=== PATIENT | male | born 1960 | race Caucasian/White ===

== ENCOUNTER 2016-09-16 12:08 | Emergency (ER) ==
--- NOTE | 2016-09-16 12:28 | PROVIDER DOCUMENTATION ---
HPI-Male Problem - General Chief Complaint: Urinary Retention Stated Complaint: PAINFUL URINATION /DRIPPING Time Seen by Provider: 09/16/16 12:17 Source: patient Allergies/Adverse Reactions: Patient Allergies Allergy/AdvReac Type Severity Reaction Status Date / Time No Known Allergies Allergy Verified 09/16/16 12:38 Home Medications: Home Medication List Medication Instructions Recorded Confirmed Last Taken Type No Home Medications 09/16/16 09/16/16 Unknown History - History of Present Illness-Male Nature of Presenting Problem: patient is a 56 y/o M that presents to the ER with 3 days of urinary retention and dribbling. Unable to get stream to go. denies fever/chills, v/d. reports suprapubic pain and pressure with nausea. Location of Complaint: reports: suprapubic Radiation: reports: none Quality of Pain: reports: cramping, fullness Severity in ED: reports: moderate Onset/Duration: reports: gradual, 3 days ago Timing: reports: still present, constant, getting worse Context/Activities at Onset: reports: none Urinary Symptoms: reports: dribbling, retention. denies: dysuria, frequency, hesitancy Associated Symptoms: reports: none Associated Symptoms: reports: nausea. denies: constipation, cough, fatigue, fever/chills, vomiting, weakness Similar Symptoms Previously?: No Recently seen or treated by another doctor?: No Review of Systems - Adult - REVIEW OF SYSTEMS - ADULT Constitutional: denies: chills, fever Eyes: reports: no symptoms reported Ears, Nose, Mouth & Throat: reports: no symptoms reported Cardiovascular: denies: chest pain, palpitations, syncope Respiratory: denies: cough, shortness of breath, wheezing Gastrointestinal: reports: abdominal pain, nausea. denies: diarrhea, vomiting Genitourinary: reports: urinary retention. denies: dysuria, discharge, frequency Musculoskeletal: denies: back pain, joint pain, neck pain Integumentary: reports: no symptoms reported Neurological: reports: no symptoms reported Psychiatric: reports: no symptoms reported Endocrine: reports: no symptoms reported Hematologic/Lymphatic: reports: no symptoms reported Allergic/Immunologic: reports: no symptoms reported All Other Systems: Reviewed and Negative Past History - Adult - PAST MEDICAL HISTORY-ADULT Review of Records: reports: Old Records Reviewed, Nursing Assessment Review, Medications Reviewed Gastrointestinal: reports: hepatitis (C) Musculoskeletal: reports: arthritis - PRIOR SURGERIES/PROCEDURES Surgical/Procedure History: reports: orthopedic (extremity) - IMMUNIZATION STATUS Childhood Immunizations: See Nurse Assessment Flu Vaccine: See Nurse Assessment - FAMILY HISTORY Family History: reviewed, not pertinent - SOCIAL HISTORY Smoking: cigarettes, less than 1 pack/day Alcohol Use Frequency: occasionally Living Situation: family Physical Exam-General - PHYSICAL EXAM-ADULT Initial Vital Signs Reviewed: Yes - CONSTITUTIONAL General Appearance: alert, no apparent distress - EYES Eyes: PERRL/EOMI, pink conjunctivae - HEAD, EARS, NOSE, MOUTH & THROAT HENMT: normocephalic/atraumatic, moist mucous membranes, normal ENT inspection - NECK Neck: full range of motion, normal inspection. negative: lymphadenopathy - RESPIRATORY Respiratory: lungs clear, normal breath sounds, no respiratory distress, no accessory muscle use - CARDIOVASCULAR Cardiovascular: regular rate, rhythm, no gallop, no murmur - GASTROINTESTINAL (ABDOMEN) Abdominal Exam: normal bowel sounds, soft, no pulsatile mass, hepatomegaly - MUSCULOSKELETAL Back Exam: no CVA tenderness, no vertebral tenderness Extremity: normal range of motion, normal inspection, no pedal edema, normal capillary refill - SKIN Integumentary: normal color, warm/dry - NEUROLOGIC Neurologic: grossly normal, no motor/sensory deficits - PSYCHIATRIC Psych/Mental Status: normal mood/affect, normal thought content, normal thought process, oriented x 3 Progress - PLAN OF CARE/RESULTS Progress/Plan/Lab Results: plan of care- labs, bladder scan, woods insertion Vital Signs Temp Pulse Resp BP Pulse Ox 09/16/16 12:12 98.0 F 75 16 116/72 99 No Known Allergies Allergy (Verified 09/16/16 12:38) No Home Medications 09/16/16 Dietary Diet NPO Start Rosa Sep 16 124 I&O 09/15/16 09/16/16 09/17/16 06:59 06:59 06:59 Output Total 300 Balance -300 Laboratory 09/16/16 09/16/16 09/16/16 12:50 12:32 12:32 WBC 8.41 RBC 4.56 L Hgb 13.7 L Hct 40.4 L MCV 88.6 MCH 30.0 MCHC 33.9 RDW Std Deviation 14.2 Plt Count 202 MPV 10.8 H Immature Gran % (Auto) 0.2 Neut % (Auto) 47.4 Lymph % (Auto) 39.4 [place] % (Auto) 10.6 H Eos % (Auto) 1.9 Baso % (Auto) 0.5 Immature Gran # (Auto) 0.02 Neut # (Auto) 3.99 Lymph # (Auto) 3.31 [place] # (Auto) 0.89 H Eos # (Auto) 0.16 Baso # (Auto) 0.04 Sodium 131 L Potassium 4.1 Chloride 94 L Carbon Dioxide 23 L Anion Gap 14 BUN 11 Creatinine 0.8 Estimated GFR/1.73 m2 > 60 BUN/Creatinine Ratio 14 Glucose 93 Calculated Osmolality 262 Calcium 9.5 Total Bilirubin 0.82 AST 84 H ALT 74 H Alkaline Phosphatase 66 Total Protein 8.2 Albumin 4.0 Globulin 4.2 Albumin/Globulin Ratio 1.0 Amylase 64 Lipase 22 Urine Source CLEAN CATCH Urine Color YELLOW Urine Turbidity CLEAR Urine pH 6.0 Ur Specific [place] 1.012 Urine Protein NEGATIVE Ur Glucose (Stick) NEGATIVE Ur Ketones (Stick) NEGATIVE Urine Blood NEGATIVE Urine Nitrite NEGATIVE Urine Bilirubin NEGATIVE Urobilinogen Dipstick NORMAL Urine Leukocytes NEGATIVE Urine WBC (Auto) <10 Urine RBC (Auto) <10 U Epithel Cells (Auto) <10 Urine Bacteria (Auto) NEGATIVE Orders Category Date Time Status Bladder Scan and Record Result ORDERED Care 09/16/16 12:17 Active Woods Cath Insertion ORDERED Care 09/16/16 12:17 Active Saline Loc DIRECTED Care 09/16/16 12:46 Active NPO Diet 09/16/16 12:46 Active RENAL STONE SEARCH [CT] Stat Exams 09/16/16 14:10 Draft AMYLASE [CHEM] Stat Lab 09/16/16 12:32 Completed CBC WITH ELECTRONIC DIFF [HEME] Stat Lab 09/16/16 12:32 Completed COMPREHENSIVE METABOLIC PANEL [CHEM] Stat Lab 09/16/16 12:32 Completed LIPASE [CHEM] Stat Lab 09/16/16 12:32 Completed UA NIMS W/REFLEX CULT [URINALYSIS] Stat Lab 09/16/16 12:50 Completed 0.9% Sodium Chloride Inj [Ns] 1,000 ml Med 09/16/16 12:46 Discontinued IV 999 mls/hr pt will be d/c home f/u with urology, pt was clinically stable, pt understood instructions and results - CT/MRI 1 CT Study: Renal Stone Impression: Abnormal CT Results: no stones or obstruction, possible cystitis, ?ileus Departure - Departure Time of Disposition Order: 15:33 DIAGNOSIS: Urinary retention Disposition: HOME 01 Certified Medical Emergency: Emergent Condition: Stable Additional Instructions: ED Follow Up Instructions: You have been treated by a care provider in the Emergency Department. These instructions are being provided to you so you can have an understanding of how to care for yourself upon discharge. Upon discharge from the Emergency Department, you are responsible for making arrangements for follow-up care by a physician of your choice. Take all prescribed medications as directed. Return to the Emergency Department immediately for any new or worsening symptoms. You may call the Physician Referral phone number at [phone] to obtain a list of Physicians who are taking new patients. Referrals: None,PCP [Primary Care Provider] - Darin Lal MD [STAFF PHYSICIAN] - Call for Appoint. 1-2days Instructions: Woods Catheter Care, Adult, [id number], Urinary Retention, Acute, Male, [id number] Attestation - Scribe Verification/Attestation Scribe:: Robert Reis Acting as Scribe for:: Kevin Mensah Scribe documention review:: This chart was documented by a scribe and accurately reflects the service the provider performed and the decisions made by the provider. Physician Attestation - Physician Attestation I, the provider, attest to the following statement:: Kevin Mensah Physician documentation Attestation:: This documentation recorded by the scribe accurately reflects the service I personally performed and the decisions made by me.
[2016-09-16] MEDS ORDERED: NS 1,000 ML IV ONE (12:46)
[2016-09-16 13:03] LABS: URINE CULTURE NEEDED? NO; URINE MICRO REVIEW NEEDED? NO; URINE SOURCE CLEAN CATCH
[2016-09-16 13:04] LABS: MANUAL DIFF NEEDED? NO
[2016-09-16 13:10] LABS: BASO% 0.5 % (0.0-0.8); EOS# 0.16 X1000 (0.0-0.7); EOS% 1.9 % (0.0-10.0); HEMATOCRIT 40.4 % (42.0-52.0); HEMOGLOBIN 13.7 g/dL (14.0-18.0); IMM GRAN# 0.02 X1000 (0.0-0.04); IMM GRAN% 0.2 % (0.0-0.5); LYMPH# 3.31 X1000 (1.2-3.4); LYMPH% 39.4 % (20.5-51.1); MCHC 33.9 g/dL (33-37); MCV 88.6 FL (81-99); MONO# 0.89 X1000 (0.11-0.59); MONO% 10.6 % (1.7-9.3); MPV 10.8 FL (7.4-10.4); NEUT% 47.4 % (42.2-75.2); PLT 202 X1000 (130-400); RBC 4.56 XMIL (4.7-6.1)
[2016-09-16 13:11] LABS: BILIRUBIN URINE NEGATIVE (NEGATIVE); BLOOD URINE NEGATIVE (NEGATIVE); COLOR YELLOW; GLUCOSE URINE NEGATIVE (NEGATIVE); LEUKOCYTES URINE NEGATIVE (NEGATIVE); NITRITE URINE NEGATIVE (NEGATIVE); PROTEIN URINE NEGATIVE (NEGATIVE); SP GRAVITY URINE 1.012; TURBIDITY URINE CLEAR (CLEAR); UROBILINOGEN URINE NORMAL (NORMAL)
[2016-09-16 13:12] LABS: UR EPITHELIAL CELLS <10 /HPF (<10); URINE BACTERIA NEGATIVE /HPF; URINE RBC <10 /HPF (<10); URINE WBC <10 /HPF (<10)
[2016-09-16 13:23] LABS: AGAP 14; ALKALINE PHOSPHATASE 66 U/L (32-122); AMYLASE 64 U/L (20-200); BUN 11 mg/dL (8-22); CALCIUM 9.5 mg/dL (8.8-10.2); CHLORIDE 94 mmol/L (98-107); COSMO 262; GOT 84 U/L (10-34); GPT 74 U/L (10-44); LIPASE 22 U/L (13-60); POTASSIUM 4.1 mmol/L (3.5-5.1); SODIUM 131 mmol/L (136-145); TCO2 23 mmol/L (25-35); TOTAL BILIRUBIN 0.82 mg/dL (0.20-1.00); TOTAL PROTEIN 8.2 g/dL (6.3-8.3)
--- NOTE | 2016-09-16 15:03 | Diag Imaging Result Document ---
PROCEDURE NAME: RENAL STONE SEARCH - 09/16/2016 CT UROGRAM WITHOUT CONTRAST: FINDINGS: There are apparent fibrotic changes in the lung bases. There are no previous studies. There is no evidence of nephrolithiasis or hydronephrosis. There is a Cottrell catheter in the bladder and some gas is present in the bladder. There is no evidence of ureteral stones. The urinary bladder is not distended and the cano are somewhat thickened. There is no evidence of appendicitis. There is some gas and fluid in the small bowel and some stool is present in the colon with possible fecalized contents in the distal ileum. The regional skeleton appears to be intact. IMPRESSION: The possibility of stasis of bowel contents in the distal ileum cannot be excluded. No definite evidence of complete obstruction is present, however. The possibility of cystitis cannot be excluded. No evidence of stones or obstruction.
[2016-09-16 15:54] VITALS: BP 128/65
== END 2016-09-16 16:02 | disposition home or self-care (01) ==
LOC: ED 12:08
DX: R33.9 Retention of urine, unspecified (principal); R10.9 Unspecified abdominal pain; R11.0 Nausea; R30.9 Painful micturition, unspecified; B19.20 Unspecified viral hepatitis C without hepatic coma; M19.90 Unspecified osteoarthritis, unspecified site; F17.210 Nicotine dependence, cigarettes, uncomplicated
CPT/HCPCS: 51702; 74176; 80053; 81001; 82150; 83690; 85025; J7030

== ENCOUNTER 2016-09-21 16:27 | Emergency (ER) ==
[2016-09-21 16:52] VITALS: BP 105/58
== END 2016-09-21 18:25 | disposition left against medical advice (07) ==
LOC: ED 16:27
DX: Z46.6 Encounter for fitting and adjustment of urinary device (principal)

== ENCOUNTER 2016-09-24 07:42 | Emergency (ER) ==
[2016-09-24 08:03] VITALS: BP 150/66
--- NOTE | 2016-09-24 09:46 | PROVIDER DOCUMENTATION ---
HPI-Male Problem - General Chief Complaint: General Adult Stated Complaint: NEED CATHETER REMOVE Time Seen by Provider: 09/24/16 09:37 Source: patient Allergies/Adverse Reactions: Patient Allergies Allergy/AdvReac Type Severity Reaction Status Date / Time No Known Allergies Allergy Verified 09/24/16 09:41 Home Medications: Home Medication List Medication Instructions Recorded Confirmed Last Taken Type Ciprofloxacin HCl [Cipro] 500 mg PO BID #10 tablet 09/24/16 Unknown Rx Tamsulosin [Flomax] 0.4 mg PO DAILY #20 capsule 09/24/16 Unknown Rx - History of Present Illness-Male Nature of Presenting Problem: 56 y/o WM c/o "needing catheter removed." Patient was here on 09/14/16 for difficulty urinating, had a woods placed in the ER, no urology consult, told to f/u with a urologist as outpatient. He states he cannot afford to go there due to not having insurance. Denies fevers or chills. Came on 09/21/16 to have it removed but LWBS. Has a cramping pain in the left lower back, no radiation. Denies nausea or vomiting. Denies discharge or pain around the urethral meatus. Denies testicular pain. Review of Systems - Adult - REVIEW OF SYSTEMS - ADULT Constitutional: reports: no symptoms reported. denies: chills, fever, fatique Eyes: reports: no symptoms reported. denies: decreased vision, blurred vision, double vision, eye pain Ears, Nose, Mouth & Throat: reports: no symptoms reported. denies: ear pain, nose pain, throat pain Cardiovascular: reports: no symptoms reported. denies: chest pain, palpitations Respiratory: reports: no symptoms reported. denies: cough, shortness of breath , wheezing Gastrointestinal: reports: no symptoms reported. denies: abdominal pain, diarrhea, nausea, vomiting Genitourinary: reports: see HPI, flank pain Musculoskeletal: reports: no symptoms reported. denies: bone pain, back pain, muscle aches Integumentary: reports: no symptoms reported. denies: rash Neurological: reports: no symptoms reported. denies: dizziness/vertigo, headache/migraines Psychiatric: reports: no symptoms reported Endocrine: reports: no symptoms reported Hematologic/Lymphatic: reports: no symptoms reported Allergic/Immunologic: reports: no symptoms reported All Other Systems: Reviewed and Negative Past History - Adult - PAST MEDICAL HISTORY-ADULT Review of Records: reports: Old Records Reviewed, Nursing Assessment Review, Medications Reviewed Major Childhood Illnesses: reports: denies history Cardiovascular: reports: denies history Respiratory: reports: denies history Gastrointestinal: reports: hepatitis (C) Genitourinary: reports: denies history Musculoskeletal: reports: arthritis Neurological: reports: denies history Endocrine/Immune: reports: denies history Other Conditions: reports: denies history - PRIOR SURGERIES/PROCEDURES Surgical/Procedure History: reports: orthopedic (extremity) - IMMUNIZATION STATUS Childhood Immunizations: See Nurse Assessment Flu Vaccine: See Nurse Assessment - FAMILY HISTORY Family History: reviewed, not pertinent - SOCIAL HISTORY Smoking: greater than 1 pack/day Provider spent 3-5 mins advising pt. on dangers of tobacco.: Discussed manners to quit use, and f/u contacts for add'l counseling. Substance Use: denies Alcohol Use Frequency: never Living Situation: family Physical Exam-General - PHYSICAL EXAM-ADULT Initial Vital Signs Reviewed: Yes - CONSTITUTIONAL General Appearance: appears well, alert, no apparent distress - EYES Eyes: PERRL/EOMI, pink conjunctivae - HEAD, EARS, NOSE, MOUTH & THROAT HENMT: normocephalic/atraumatic, moist mucous membranes - NECK Neck: non-tender, full range of motion, supple, normal inspection - RESPIRATORY Respiratory: chest non-tender, lungs clear, normal breath sounds, no pleuratic chest pain, no respiratory distress, no accessory muscle use. negative: respiratory distress, decreased breath sounds, accessory muscle use, crackles, rales, rhonchi, wheezing - CARDIOVASCULAR Cardiovascular: normal peripheral pulses, systolic murmur (3/6) - GASTROINTESTINAL (ABDOMEN) Abdominal Exam: normal bowel sounds, non tender, soft, no organomegaly, no pulsatile mass. negative: abdominal bruit, abnormal bowel sounds, distended, guarding, rigid, rebound, tenderness - MUSCULOSKELETAL Back Exam: normal inspection, no vertebral tenderness Extremity: normal range of motion, non-tender, normal gait - SKIN Integumentary: normal color, normal turgor, warm/dry - NEUROLOGIC Neurologic: grossly normal, no motor/sensory deficits - PSYCHIATRIC Psych/Mental Status: normal mood/affect, normal thought content, normal thought process, oriented x 3 Progress - PLAN OF CARE/RESULTS Progress/Plan/Lab Results: Vital Signs Temp Pulse Resp BP Pulse Ox 09/24/16 08:00 97.8 F 57 L 18 150/66 100 No Known Allergies Allergy (Verified 09/24/16 09:41) No Home Medications 09/24/16 Laboratory 09/24/16 09:35 Urine Source CATH Urine Color STRAW Urine Turbidity HAZY Urine pH 6.0 Ur Specific [place] 1.002 Urine Protein NEGATIVE Ur Glucose (Stick) NEGATIVE Ur Ketones (Stick) NEGATIVE Urine Blood MODERATE A Urine Nitrite NEGATIVE Urine Bilirubin NEGATIVE Urobilinogen Dipstick NORMAL Urine Leukocytes LARGE A Orders Category Date Time Status UA NIMS W/REFLEX CULT [URINALYSIS] Stat Lab 09/24/16 09:35 Results URINE MANUAL MICROSCOPIC [URINALYSIS] Stat Lab 09/24/16 09:35 Results Went to discharge patient and he is no longer in the room. Waited 30 minutes, never returned to the ER. 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 Departure - Departure Time of Disposition Order: 10:06 DIAGNOSIS: Acute UTI, Encounter for Woods catheter removal BPH (benign prostatic hyperplasia) Qualifiers: Prostatic enlargement morphology: unspecified morphology Lower urinary tract symptom presence: symptoms present Qualified Code(s): N40.1 - Benign prostatic hyperplasia with lower urinary tract symptoms Disposition: [place] [id number] Certified Medical Emergency: Emergent Condition: Stable Additional Instructions: Follow up with Dr. Shipley, urologist ED Follow Up Instructions: You have been treated by a care provider in the Emergency Department. These instructions are being provided to you so you can have an understanding of how to care for yourself upon discharge. Upon discharge from the Emergency Department, you are responsible for making arrangements for follow-up care by a physician of your choice. Take all prescribed medications as directed. Return to the Emergency Department immediately for any new or worsening symptoms. You may call the Physician Referral phone number at [phone] to obtain a list of Physicians who are taking new patients. Prescriptions: Ciprofloxacin HCl [Cipro] 500 mg PO BID #10 tablet Tamsulosin [Flomax] 0.4 mg PO DAILY #20 capsule Referrals: None,PCP [Primary Care Provider] - Frankie Shipley MD [STAFF PHYSICIAN] - Instructions: Benign Prostatic Hyperplasia, Urinary Tract Infection, Easy-to- Read Attestation - Physician/ URBANO Attestation Patient care was provided by Advanced Practice Provider:: Yes Advanced Practice Provider:: Prerna Castillo Advanced Practice Provider documentation review:: The Mid-level provider documentation, treatment plan and medical decision making was reviewed by the physician who agrees with all treatment and medical decision making by the MLP.
[2016-09-24 09:48] LABS: URINE SOURCE CATH
[2016-09-24 09:59] LABS: BILIRUBIN URINE NEGATIVE (NEGATIVE); BLOOD URINE MODERATE (NEGATIVE); COLOR STRAW; GLUCOSE URINE NEGATIVE (NEGATIVE); LEUKOCYTES URINE LARGE (NEGATIVE); NITRITE URINE NEGATIVE (NEGATIVE); PROTEIN URINE NEGATIVE (NEGATIVE); SP GRAVITY URINE 1.002; TURBIDITY URINE HAZY (CLEAR); UROBILINOGEN URINE NORMAL (NORMAL)
[2016-09-24 10:01] LABS: URINE MICRO REVIEW NEEDED? YES
[2016-09-24 10:10] LABS: UR EPITHELIAL CELLS <10 /HPF (<10); URINE BACTERIA NEGATIVE /HPF; URINE CULTURE NEEDED? YES; URINE RBC <10 /HPF (<10); URINE WBC <10 /HPF (<10)
[2016-09-24 10:22] LABS: URINE CASTS NONE SEEN; URINE CRYSTALS NONE SEEN; URINE SMALL ROUND CELLS NONE SEEN
== END 2016-09-24 10:29 | disposition left against medical advice (07) ==
LOC: ED 07:42
DX: N39.0 Urinary tract infection, site not specified (principal); N40.1 Benign prostatic hyperplasia with lower urinary tract symptoms; M54.5 Low back pain; R10.9 Unspecified abdominal pain; R01.1 Cardiac murmur, unspecified; B19.20 Unspecified viral hepatitis C without hepatic coma; M19.90 Unspecified osteoarthritis, unspecified site; F17.210 Nicotine dependence, cigarettes, uncomplicated; Z46.6 Encounter for fitting and adjustment of urinary device; Z71.6 Tobacco abuse counseling
CPT/HCPCS: 81001; 87088

== ENCOUNTER 2019-03-11 06:46 | Inpatient (IN) ==
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
--- NOTE | 2019-03-11 07:54 | Diag Imaging Result Doc PS360 ---
EXAM: RIBS BILATERAL W/PA CHEST INDICATION: injury TECHNIQUE: 5 views COMPARISON: 09/16/2017 FINDINGS: There is a pneumothorax on the right. It occupies approximately 15-20% of the right hemithorax. There is also a small amount of layering fluid at the right lung base. The left lung is clear. The cardiac silhouette and central vasculature are unremarkable. No well-defined rib fracture can be identified by plain radiograph. IMPRESSION: Right-sided hydropneumothorax as described but no well-defined rib fracture can be identified by plain radiograph. Electronically signed by Jimmy Rose 03/11/2019 7:51 AM
[2019-03-11] MEDS ORDERED: DILAUDID IV ONE (08:18)
[2019-03-11] MEDS ORDERED: VALIUM IV ONE (09:00)
[2019-03-11 09:29] LABS: BASO# 0.04 X1000 (0.0-0.2); BASO% 0.5 % (0.0-0.8); EOS# 0.09 X1000 (0.0-0.7); EOS% 1.1 % (0.0-10.0); HEMATOCRIT 41.5 % (42.0-52.0); HEMOGLOBIN 14.4 g/dL (14.0-18.0); LYMPH# 2.02 X1000 (1.2-3.4); LYMPH% 25.7 % (20.5-51.1); MCH 31.1 PG (27-31); MCHC 34.7 g/dL (33-37); MCV 89.6 FL (81-99); MONO# 0.97 X1000 (0.11-0.59); MONO% 12.3 % (1.7-9.3); MPV 10.7 FL (7.4-10.4); NEUT# 4.74 X1000 (1.4-6.5); NEUT% 60.4 % (42.2-75.2); PLT 158 X1000 (130-400); RBC 4.63 XMIL (4.7-6.1); RDW 13.3 % (11.5-14.5); WBC 7.86 X1000 (4.8-10.8)
[2019-03-11 09:53] LABS: AGAP 13; ALB/GLOB RATIO 1.2; ALBUMIN 4.5 g/dL (3.5-5.0); ALKALINE PHOSPHATASE 76 U/L (32-122); BUN 9 mg/dL (8-22); CALCIUM 9.5 mg/dL (8.8-10.2); CHLORIDE 97 mmol/L (98-107); COSMO 272; CREATININE 0.5 mg/dL (0.7-1.2); ESTIMATED GFR > 60; GLUCOSE 116 mg/dL (70-104); GOT 181 U/L (10-34); GPT 125 U/L (10-44); SODIUM 136 mmol/L (136-145); TCO2 26 mmol/L (25-35); TOTAL BILIRUBIN 1.02 mg/dL (0.20-1.00); TOTAL PROTEIN 8.4 g/dL (6.3-8.3)
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
[2019-03-11] MEDS ORDERED: NORCO-10 PO PRN (11:02)
--- NOTE | 2019-03-11 11:37 | Diag Imaging Result Doc PS360 ---
EXAM: CT ABD/PELVIS W/IV CONT ONLY INDICATION: R pneumothorax TECHNIQUE: This exam was performed using automated exposure control, adjustment of mA or kV according to patient size, and/or use of iterative reconstruction technique. COMPARISON: 12/14/2017 FINDINGS: There is a pneumothorax on the right. Please see dedicated chest CT performed at the same time for full details. The liver, gallbladder, spleen, pancreas, and adrenal glands are unremarkable. There is a tiny right renal cortical cyst superiorly. There appears to be persistent lobulation involving both kidneys, a normal variant. The kidneys are unremarkable, otherwise. The urinary bladder distended and is unremarkable, otherwise. There is no evidence of focal bowel wall thickening or bowel obstruction. The remainder of the GI tract is essentially unremarkable. No focal inflammatory changes, free abdominal gas, or free fluid is identified. The bony structures of the abdomen and pelvis are grossly intact. IMPRESSION: 1.Right hydropneumothorax. Please see separate dedicated chest CT report performed the same time. 2.Incidental/nonacute findings detailed above. No evidence of acute pathology involving the abdomen or pelvis. Electronically signed by Jimmy Rose 03/11/2019 11:34 AM
--- NOTE | 2019-03-11 11:49 | Diag Imaging Result Doc PS360 ---
EXAM: CT THORAX W/O CONTRAST INDICATION: pneumothorax TECHNIQUE: This exam was performed using automated exposure control, adjustment of mA or kV according to patient size, and/or use of iterative reconstruction technique. COMPARISON: None. FINDINGS: There is a recently placed chest tube on the right. The tip projects anterior to the right upper lobe and it barely abuts the brachiocephalic vein as it joins the IVC. There is no mass effect on the vein. The known right pneumothorax persists. It appears to occupy about 20% of the right hemithorax. There is a small pleural fluid collection layering at the right lung base as well that probably represents blood products given the recent trauma. There is adjacent right basilar atelectasis. There is mild pulmonary emphysema. There is a 1 cm focal opacity in the right upper lobe at the periphery on image 74 series 3 that appears slightly nodular. It may simply represent focal atelectasis or minimal contusion given the recent trauma. Follow-up is recommended based on Fleischner Society criteria, however. There is no other sign of pulmonary contusion. Despite these findings no discrete rib fracture is identified. The other bony structures of the thorax are grossly intact. There is soft tissue emphysema overlying the right chest wall anteriorly. There are no abnormal mediastinal fluid collections and there is no pneumomediastinum. There are a few calcified mediastinal lymph nodes indicating prior granulomatous disease. There is no evidence of significant lymphadenopathy. IMPRESSION: 1.Pneumothorax with recently placed right chest tube as detailed above. 2.Small pleural fluid collection at the right lung base with adjacent atelectasis. 3.Mild pulmonary emphysema. 4.Small focal nodular density in the right upper lobe. Please see above discussion. Electronically signed by Jimmy Rose 03/11/2019 11:47 AM
--- NOTE | 2019-03-11 12:18 | Diag Imaging Result Doc PS360 ---
EXAM: CHEST-PORTABLE INDICATION: chest tube TECHNIQUE: One view COMPARISON: 03/11/2019 FINDINGS: There has been interval placement of right chest tube. The tip projects over the right upper lung zone medially. Since placement, the right pneumothorax has decreased in size. Only a small pneumothorax can be seen now at the right lung base. Otherwise, the chest is stable. IMPRESSION: Interval placement of right chest tube with resulting decrease in size of the right pneumothorax. Electronically signed by Jimmy Rose 03/11/2019 12:16 PM
[2019-03-11] MEDS: NICODERM PATCH TD SCH (13:15)
[2019-03-11] MEDS: NORCO-10 PO PRN ×2 (16:09→20:02)
[2019-03-11] MEDS ORDERED: RESTORIL PO ONE (22:49)
[2019-03-12] MEDS: NORCO-10 PO PRN ×5 (01:36→21:04)
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
--- NOTE | 2019-03-12 07:10 | GENERAL SURGERY PROGRESS NOTE ---
DATE: 03/12/2019 ADDENDUM: The patient does report 8 to 9 beers a day, so will put him on alcohol with meals to avoid DTs. cc: Shakir Olivera MD
--- NOTE | 2019-03-12 07:51 | Diag Imaging Result Doc PS360 ---
EXAM: CHEST-PORTABLE INDICATION: pneumothorax TECHNIQUE: One view COMPARISON: 03/11/2019 FINDINGS: The right chest tube is in approximately stable position. The pneumothorax seen on the previous study appears to have grossly resolved by plain radiograph. Small amount of pleural fluid on the right also cannot be seen on the current study. There is mild right basilar atelectasis that is approximately stable. No new consolidation is identified. Cardiac silhouette is stable. IMPRESSION: Gross resolution of the right-sided pneumothorax by plain radiograph. Electronically signed by Jimmy Rose 03/12/2019 7:49 AM
[2019-03-12] MEDS: DILAUDID IV PRN ×4 (08:11→23:33)
[2019-03-12] MEDS: NICODERM PATCH TD SCH (08:17)
[2019-03-12] MEDS: BEER PO SCH ×3 (08:40→17:15)
[2019-03-13] MEDS: NORCO-10 PO PRN ×4 (04:33→21:44)
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
[2019-03-13] MEDS: DILAUDID IV PRN ×3 (07:55→18:51)
--- NOTE | 2019-03-13 08:25 | Diag Imaging Result Doc PS360 ---
EXAM: CHEST-PORTABLE 03/13/2019 HISTORY: follow up pneumothorax TECHNIQUE: AP portable upright at 0814 COMMENT: There is a right-sided chest tube. There is bibasilar atelectasis. The soft tissue emphysema seen previously in the axilla on the right has diminished. There is a small apical pneumothorax measuring almost 9 mm in thickness. This was not visible on the previous study. Otherwise are has been no appreciable change since 03/12/2019. IMPRESSION: Bibasilar atelectasis. Small apical pneumothorax on the right. Electronically signed by Pedro Mata 03/13/2019 8:23 AM
[2019-03-13] MEDS: BEER PO SCH ×3 (08:52→17:12)
[2019-03-13] MEDS: NICODERM PATCH TD SCH (08:53)
[2019-03-14] MEDS: NORCO-10 PO PRN ×4 (02:12→21:09)
[2019-03-14] MEDS: DILAUDID IV PRN ×4 (05:49→23:33)
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
--- NOTE | 2019-03-14 08:42 | Diag Imaging Result Doc PS360 ---
CHEST-PORTABLE - 03/14/2019 INDICATION: follow pneumothorax COMPARISON: 03/13/2019 FINDINGS: Stable right chest tube in good position. There is a questionable, trace right apical pneumothorax similar to prior. This measures 8 mm or less. The left lung remains grossly clear. Heart size is normal. IMPRESSION: Questionable trace right apical pneumothorax. No change from prior. Electronically signed by Iglesia Do 03/14/2019 8:40 AM
[2019-03-14] MEDS: NICODERM PATCH TD SCH (08:58)
[2019-03-14] MEDS: BEER PO SCH ×3 (09:07→16:06)
[2019-03-15] MEDS: NORCO-10 PO PRN ×5 (03:58→22:49)
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
--- NOTE | 2019-03-15 07:16 | Diag Imaging Result Doc PS360 ---
EXAM: CHEST-PORTABLE 03/15/2019 HISTORY: follow up pneuomothorax TECHNIQUE: AP portable at 0609 COMMENT: There is a right chest tube. There is an apical pneumothorax measuring almost 16 mm in thickness. There is blunting of the left costophrenic angle presumably due to fibrosis. Compared to the previous examination of 03/14/2019 at 0817 the pneumothorax actually is slightly larger having measured less than 10 mm previously. IMPRESSION: Slightly worsened right pneumothorax. Electronically signed by Pedro Mata 03/15/2019 7:14 AM
[2019-03-15] MEDS: BEER PO SCH ×3 (07:50→17:40)
[2019-03-15] MEDS: NICODERM PATCH TD SCH ×3 (07:50→12:20)
--- NOTE | 2019-03-15 09:38 | Diag Imaging Result Doc PS360 ---
EXAM: CHEST-PORTABLE 03/15/2019 HISTORY: pneumothorax TECHNIQUE: AP portable at 0901 COMMENT: There is a right chest tube. The apical pneumothorax has increased slightly and now measures over 17 mm compared to under 16 mm previously. IMPRESSION: Slight increase in size of right pneumothorax. Electronically signed by Pedro Mata 03/15/2019 9:36 AM
[2019-03-15] MEDS: TORADOL IV PRN (12:20)
[2019-03-15] MEDS: DILAUDID IV PRN ×3 (13:30→22:54)
[2019-03-16] MEDS: DILAUDID IV PRN ×5 (04:16→20:47)
[2019-03-16] MEDS: NORCO-10 PO PRN ×4 (06:15→23:08)
--- NOTE | 2019-03-16 07:26 | Diag Imaging Result Doc PS360 ---
EXAM: CHEST-PORTABLE INDICATION: pneumothorax TECHNIQUE: One view COMPARISON: 03/15/2019 FINDINGS: The right chest tube is in stable position. The small right apical pneumothorax seen on the previous study appears to have marginally resolved. There may be a trace pneumothorax at the right lung apex. No new consolidation is identified. Cardiac silhouette is stable. IMPRESSION: Decrease in small right apical pneumothorax to near resolution. Electronically signed by Jimmy Rose 03/16/2019 7:24 AM
[2019-03-16] MEDS: BEER PO SCH ×3 (09:33→17:39)
[2019-03-16] MEDS: NICODERM PATCH TD SCH (09:33)
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
[2019-03-17] MEDS: DILAUDID IV PRN ×5 (00:21→13:46)
--- NOTE | 2019-03-17 07:29 | Diag Imaging Result Doc PS360 ---
CHEST-PORTABLE - 03/17/2019 INDICATION: follow up pneumothorax COMPARISON: 03/16/2019 FINDINGS: Stable right chest tube in good position. No visible pneumothorax. No infiltrates or edema. Heart size remains top normal. IMPRESSION: No pneumothorax. Electronically signed by Iglesia Do 03/17/2019 7:26 AM
[2019-03-17] MEDS: NICODERM PATCH TD SCH (08:47)
[2019-03-17] MEDS: BEER PO SCH ×2 (08:48→11:58)
[2019-03-17] MEDS: NORCO-10 PO PRN ×3 (09:08→22:05)
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
[2019-03-17] MEDS: TORADOL IV PRN ×2 (16:04→22:10)
[2019-03-18] MEDS: NORCO-10 PO PRN ×2 (04:04→08:14)
[2019-03-18] MEDS: TORADOL IV PRN (04:05)
[2019-03-18 07:54] VITALS: BP 125/59
[2019-03-18] MEDS: BEER PO SCH ×2 (08:16→08:17)
--- NOTE | 2019-03-18 08:39 | Diag Imaging Result Doc PS360 ---
CHEST-2 VIEWS - 03/18/2019 INDICATION: Fractured ribs on R COMPARISON: 03/17/2019 FINDINGS: The right-sided chest tube has been removed. No pneumothorax. There is some strandy atelectasis or infiltrate in the right midlung and lung base. There are trace bilateral pleural effusions. Heart size is normal. IMPRESSION: No pneumothorax. Electronically signed by Iglesia Do 03/18/2019 8:37 AM
[2019-03-18] MEDS: NICODERM PATCH TD SCH (09:09)
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
== END 2019-03-18 10:14 | disposition home or self-care (01) | DRG 200 ==
LOC: ED 06:46 → 4N 10:07
PROVIDERS: ADMIT Surgery; ATTEND Surgery